=== PATIENT | male | born 1955 | race Caucasian/White ===

== ENCOUNTER 2016-08-06 13:51 | Emergency (ER) | payer BC ==
[~2016-08-06] VITALS: Ht 172.7 cm; Wt 80.8 kg
[~2016-08-06 13:51] MED LIST: ATOR10TA65 PO; CARI250T10 PO; CHOL50009 PO; FINA5TAB4 PO; FLUT16SP24 NASAL; GABA300C PO; HYD25 PO; HYDR4TAB18 PO; KENC1 TOP; METO50TA16 PO; MORP15TA92 PO; OMEP20CA16 PO; ONDA4TAB95 SUBLINGUAL; PANT40TA3 PO; TAMS-14 PO; TEMA30CA6 PO
[2016-08-06 14:04] VITALS: Ht 172.7 cm; Wt 80.8 kg
[2016-08-06] MEDS ORDERED: HYDROmorphONE 1 MG/ML SYG IV STA ×2 (15:28→17:10)
[2016-08-06] MEDS ORDERED: SOD CHLORIDE 0.9% 1,000 ML IV STA (15:28)
[2016-08-06] MEDS ORDERED: ONDANSETRON 4 MG INJ IV STA (15:28)
[2016-08-06 16:07] LABS: ADD SCAN DIFF NO
[2016-08-06 16:10] LABS: BASOPHIL # 0.1 10^3/ul (0.0-0.1); BASOPHILS % 0.6 % (0.0-2.0); EOSINOPHILS # 0.1 10^3/ul (0.0-0.5); EOSINOPHILS % 0.7 % (0.0-7.0); HEMATOCRIT 41.3 % (42.0-52.0); HEMOGLOBIN 14.4 g/dl (14.0-18.0); LYMPHOCYTES # 2.9 10^3/ul (0.8-2.9); LYMPHOCYTES % 32.8 % (15.0-51.0); MEAN CORPUSCULAR HEMOGLOBIN 28.2 pg (29.0-33.0); MEAN CORPUSCULAR HGB CONC 34.9 g/dl (32.0-37.0); MEAN PLATELET VOLUME 8.7 fl (7.4-10.4); MONOCYTE # 0.6 10^3/ul (0.3-0.9); MONOCYTES % 6.7 % (0.0-11.0); NEUTROPHIL # 5.2 10^3/ul (1.6-7.5); PLATELET COUNT 354 10^3/UL (140-415); WHITE BLOOD COUNT 8.8 10^3/ul (4.8-10.8)
--- NOTE | 2016-08-06 16:13 | RADRPT ---
PROCEDURE: CT Head without. CLINICAL INDICATION: Headache, pressure behind the right eye. TECHNIQUE: The study was performed utilizing a multi-slice, multidetector CT scanner. Direct spira l 1 mm axial sections were obtained through the head without the use of intravenous contrast materia l. 1 or more of the following dose reduction techniques were utilized: Automated exposure control, adjustment of the mA and/or kV according to patient's size, iterative reconstruction technique. Co tiki and sagittal reformations were obtained. The images were reviewed on a PACS workstation. RADIATION DOSE: CTDIvol: 50.9 mGyDLP: 715.6 mGy-cm COMPARISON: 04/02/2014 FINDINGS: There is no intracranial hemorrhage, extra-axial fluid collection, mass lesion, midline shift or hyd rocephalus. There is mild prominence of the cerebral sulci, lateral and third ventricles. There is mild to moderate patchy periventricular and subcortical white matter hypodensity. There is mild ar teriosclerotic calcification of the parasellar internal carotid arteries. The sunshine-white matter dif ferentiation is preserved. The basal cisterns are patent. The midline structures are intact. The orbits, calvarium and extracranial soft tissues are normal in appearance. The visualized paranasal s inuses, mastoid air cells and middle ear cavities are normally aerated. IMPRESSION: 1. No acute intracranial abnormality. No intracranial hemorrhage, extra-axial fluid collection, ma ss lesion or hydrocephalous. 2. Mild peripheral and central cerebral volume loss. 3. Mild to moderate patchy periventricular and subcortical white matter hypodensity, likely related to chronic microangiopathic changes. RPTAT: HGAS .Juan Teran MD, MD Date Time Electronically viewed and signed by .Juan Teran MD, on 08/06/2016 16:13 .S/
[2016-08-06 16:38] LABS: POTASSIUM 3.8 mmol/L (3.5-5.1)
[2016-08-06 16:41] LABS: CREATININE 0.85 mg/dl (0.61-1.24)
[2016-08-06 16:42] LABS: CALCIUM 10.1 mg/dl (8.4-10.2)
[2016-08-06] MEDS ORDERED: KETOROLAC 15 MG INJ IV STA (17:10)
[2016-08-06] MEDS ORDERED: ONDA8TAB14 PO (17:30)
[2016-08-06] MEDS ORDERED: HYDR-902 PO (17:30)
--- NOTE | 2016-08-06 17:35 | ERD ---
ER Documentation Chief Complaint Date/Time DATE: 08/06/16 TIME: 17:31 Chief Complaint headache/ neck pain x 4 days (sees floaters) HPI This 61-year-old male complete to the headache and neck pain for last 4 days. He has a history of chronic neck and back pain and multiple orthopedic surgeries. He is under pain management with Dr. REDDING. Denies a history of trauma. He feels weak and dehydrated due to his inability to take by mouth's through severe headache and nausea. He takes Dilaudid and morphine at home. Denies fevers, vomiting, diarrhea, abdominal pain, weakness, bowel or bladder incontinence. ROS All systems reviewed and are negative except as per history of present illness. Medications Home Meds Active Scripts Ondansetron (Ondansetron Odt) 8 Mg Tab.rapdis, 8 MG PO Q6H Y for NAUSEA AND/OR VOMITING, #8 TAB Prov:DENYS VAZQUEZ MD 08/06/16 Hydrocodone/Acetaminophen ([place] 10-325 Tablet) 1 Each Tablet, 1 TAB PO Q6H Y for PAIN, #12 TAB Prov:DENYS VAZQUEZ MD 08/06/16 Reported Medications Hydrochlorothiazide* (Hydrochlorothiazide*) 25 Mg Tab, 25 MG PO DAILY, #30 TAB 02/18/16 Pantoprazole* (Protonix*) 40 Mg Tablet.dr, 40 MG PO DAILY, TAB 02/18/16 Ondansetron Hcl* (Ondansetron Hcl*) 4 Mg Tablet, 4 MG SUBLINGUAL Q8 Y for NAUSEA , TAB 02/18/16 Triamcinolone Acetonide (Triamcinolone Acetonide) 0.1% - 15 Gm Cream.gm., 1 APPLIC TOP BID for rash, started on 02/15 for 14 Days, #1 TUB 02/18/16 Carisoprodol* (Carisoprodol*) 250 Mg Tablet, 125 MG PO Q8H Y for MUSCLE SPASMS, TAB 12/25/14 Omeprazole* (Omeprazole*) 20 Mg Capsule.dr, 20 MG PO DAILY, CAP 12/25/14 Metoprolol Succinate* (Toprol XL*) 50 Mg Tab.er.24h, 50 MG PO DAILY, TAB 12/25/14 Atorvastatin (Atorvastatin) 10 Mg Tablet, 20 MG PO, TAB 12/25/14 Cholecalciferol* (Vitamin D*) 5,000 Unit Tablet, 1000 UNIT PO DAILY, TAB 12/25/14 Morphine Sulfate* (Ms Contin*) 15 Mg Tablet.sa, 15 MG PO Q8 Y for PAIN, TAB.SA 05/12/14 Hydromorphone Hcl* (Dilaudid*) 4 Mg Tablet, 4 MG PO Q6H Y for PAIN, TAB 05/12/14 Fluticasone Propionate* (Flonase* Nasal) 50 Mcg/[place] - 16 Gm [place].susp, 1 SPRAY NASAL DAILY, SPRAY (TO EACH NOSTRIL) 04/26/14 Gabapentin* (Neurontin*) 300 Mg Capsule, 300 MG PO TID, CAP 04/26/14 Temazepam* (Restoril*) 30 Mg Capsule, 30 MG PO HS Y for INSOMNIA, CAP 04/26/14 Tamsulosin Hcl* (Flomax*) 0.4 Mg Cap.er.24h, 0.4 MG PO DAILY, CAP 04/02/14 Finasteride* (Finasteride*) 5 Mg Tablet, 5 MG PO HS, TAB 04/02/14 Allergies Allergies: Coded Allergies: azithromycin (Verified Allergy, Unknown, 02/18/16) PMhx/Soc History of Surgery: Yes (bone fusion, right rotator cuff, appendectomy, hernia , right knee replaceme) Anesthesia Reaction: No Hx Neurological Disorder: No Hx Respiratory Disorders: No Hx Cardiac Disorders: Yes (htn) Hx Psychiatric Problems: No Hx Miscellaneous Medical Probl: No Hx Alcohol Use: Yes Hx Substance Use: No Hx Tobacco Use: No Physical Exam Vitals Vital Signs Date Time Temp Pulse Resp B/P Pulse Ox O2 Delivery O2 Flow Rate FiO2 08/06/16 14:04 97.7 100 18 117/80 97 Physical Exam Const: [] Head: Atraumatic Eyes: Normal Conjunctiva ENT: Normal External Ears, Nose and Mouth. Neck: Full range of motion..~ No meningismus. Resp: Clear to auscultation bilaterally Cardio: Regular rate and rhythm, no murmurs Abd: Soft, non tender, non distended. Normal bowel sounds Skin: No petechiae or rashes Back: No midline or flank tenderness Ext: No cyanosis, or edema Neur: Awake and alert Psych: Normal Mood and Affect Result Diagram: 08/06/16 1535 08/06/16 1535 Results 24 hrs Laboratory Tests Test 08/06/16 15:35 Anion Gap 19 Basophils # 0.110^3/ul Basophils % 0.6% Blood Urea Nitrogen 12mg/dl Calcium Level 10.1mg/dl Carbon Dioxide Level 34mmol/L Chloride Level 91mmol/L Creatinine 0.85mg/dl Eosinophils # 0.110^3/ul Eosinophils % 0.7% Glucose Level 111mg/dl Hematocrit 41.3% Hemoglobin 14.4g/dl Lymphocytes # 2.910^3/ul Lymphocytes % 32.8% Mean Corpuscular Hemoglobin 28.2pg Mean Corpuscular Hemoglobin Concent 34.9g/dl Mean Corpuscular Volume 81.0fl Mean Platelet Volume 8.7fl Monocytes # 0.610^3/ul Monocytes % 6.7% Neutrophils # 5.210^3/ul Neutrophils % 59.0% Nucleated Red Blood Cells # 0.010^3/ul Nucleated Red Blood Cells % 0.0/100WBC Platelet Count 36208^3/UL Potassium Level 3.8mmol/L Red Blood Count 5.1010^6/ul Red Cell Distribution Width 13.0% Sodium Level 140mmol/L White Blood Count 8.810^3/ul Current Medications Medications (Trade) Dose Ordered Sig/José Manuel Route PRN Reason Start Time Stop Time Status Last Admin Dose Admin Sodium Chloride (NS) 1,000 ml @ 1,000 mls/hr Q1H STAT IV 08/06/16 15:28 08/06/16 16:27 DC 08/06/16 15:50 Hydromorphone HCl (Dilaudid) 1 mg ONCE STAT IV 08/06/16 15:28 08/06/16 15:30 DC 08/06/16 15:50 Ondansetron HCl (Zofran Inj) 4 mg ONCE STAT IV 08/06/16 15:28 08/06/16 15:30 DC 08/06/16 15:50 Ketorolac Tromethamine (Toradol) 15 mg ONCE STAT IV 08/06/16 17:10 08/06/16 17:12 DC 08/06/16 17:27 Hydromorphone HCl (Dilaudid) 1 mg ONCE STAT IV 08/06/16 17:10 08/06/16 17:12 DC 08/06/16 17:27 Procedures/MDM Given the uncertain cause of her acute pain and headache, no previous history of regular ED visits,AN IV was obtained. Patient was given 1 L normal saline IV , Dilaudid 1 mg IV for acute pain. CBC shows no acute abnormalities. CMP shows elevated bicarbonate decreased chloride, otherwise no acute findings. CT brain was performed which showed no acute findings. Patient was given additional Dilaudid 1 mg IV for prolonged the course. Patient felt better after observation and treatment. Patient has headache of uncertain etiology this or if of acute on chronic headaches and neck pain. Patient shows no evidence of neurologic deficit, sensory symptoms to suggest stroke, hemorrhage, meningitis, additional emergent conditions. Patient will be given a short course of [place] request for pain management in 2 days. Patient was advised drink clear fluids, push: Lower can taken follow-up with primary doctor or treating physician as necessary. He should return for fevers, vomiting, weakness, new or worsening symptoms.The patient was stable with no new complaints during the ER course. Clinically, there is no current evidence to suggest meningitis, sepsis, acute abdomen, pneumonia, acute coronary syndrome, pulmonary embolism, or any other emergent condition appearing to require further evaluation or hospitalization. The patient should certainly return for any new or worsening symptoms per the aftercare instructions. They should otherwise follow-up with her primary care doctor for reevaluation this week. Departure Diagnosis: Primary Impression: Headache Headache type: unspecified Headache chronicity pattern: acute headache Intractability: not intractable Qualified Code: R51 - Acute nonintractable headache, unspecified headache type Condition: Stable Patient Instructions: Self-Care for Headaches, Back And Neck Pain, General Additional Instructions: [place] doctor or pain management as scheduled. Recheck for fevers, vomiting, new or worsening symptoms. DENYS VAZQUEZ MD Aug 06, 2016 17:35
[2016-08-06 17:58] VITALS: BP 115/78; PULSE 79; RESP 16; TEMP 98.3
== END 2016-08-06 18:00 | disposition home or self-care (01) ==
LOC: FTE 13:51
DX: R51 Headache (principal); I10 Essential (primary) hypertension; R11.0 Nausea; Z96.651 Presence of right artificial knee joint
CPT/HCPCS: 36415; 70450; 80048; 85025; 96374; 96375; 96376; J1170; J1885; J2405; J7030; Z7502

== ENCOUNTER 2016-08-18 14:43 | Emergency (ER) | payer BC ==
[~2016-08-18] VITALS: Wt 79.0 kg
[~2016-08-18 14:43] MED LIST changes: +HYDR-902 PO; +ONDA8TAB14 PO
[2016-08-18] MEDS ORDERED: SOD CHLORIDE 0.9% 1,000 ML IV STA (16:10)
[2016-08-18] MEDS ORDERED: ONDANSETRON 4 MG INJ IV STA (16:10)
[2016-08-18] MEDS ORDERED: HYDROmorphONE 1 MG/ML SYG IV STA (16:18)
[2016-08-18 16:36] LABS: ADD SCAN DIFF NO
[2016-08-18 16:48] LABS: ALBUMIN 4.4 g/dl (3.3-4.9); BASOPHILS % 0.3 % (0.0-2.0); EOSINOPHILS % 0.1 % (0.0-7.0); HEMATOCRIT 40.3 % (42.0-52.0); HEMOGLOBIN 13.4 g/dl (14.0-18.0); LYMPHOCYTES # 1.3 10^3/ul (0.8-2.9); LYMPHOCYTES % 15.5 % (15.0-51.0); MEAN CORPUSCULAR HGB CONC 33.3 g/dl (32.0-37.0); MEAN CORPUSCULAR VOLUME 84.1 fl (82.0-101.0); MEAN PLATELET VOLUME 9.1 fl (7.4-10.4); MONOCYTE # 0.4 10^3/ul (0.3-0.9); NEUTROPHIL # 6.9 10^3/ul (1.6-7.5); NEUTROPHILS % 79.8 % (39.0-77.0); PLATELET COUNT 272 10^3/UL (140-415); RED BLOOD COUNT 4.79 10^6/ul (4.70-6.10); RED CELL DISTRIBUTION WIDTH 12.9 % (11.5-14.5); WHITE BLOOD COUNT 8.7 10^3/ul (4.8-10.8)
[2016-08-18 16:49] LABS: POTASSIUM 4.1 mmol/L (3.5-5.1)
[2016-08-18 16:51] LABS: ALBUMIN/GLOBULIN RATIO 1.37; BILIRUBIN,INDIRECT 0.6 mg/dl (0-1.1); BILIRUBIN,TOTAL 0.6 mg/dl (0.2-1.3); CREATININE 0.75 mg/dl (0.61-1.24); TOTAL PROTEIN 7.6 g/dl (6.1-8.1)
[2016-08-18 16:52] LABS: CALCIUM 10.1 mg/dl (8.4-10.2)
[2016-08-18] MEDS ORDERED: FAMO-18 PO (17:30)
[2016-08-18] MEDS ORDERED: LIDOCAINE/MYLANTA 40 ML BTL PO ONE (17:30)
[2016-08-18] MEDS ORDERED: FAMOTIDINE 20 MG INJ IV ONE (17:30)
--- NOTE | 2016-08-18 18:00 | ERD ---
ER Documentation Chief Complaint Date/Time DATE: 08/18/16 TIME: 17:57 Chief Complaint CHRONIC BACK PAIN HPI 61-year-old male with a past medical history of chronic neck, back, knee pain that started intermittently 5 years ago presents the ED complaining of the same chronic pain as well as weakness. States that he has not eaten in the last 3 days. States that he also has left upper quadrant abdominal pain. Describes the pain as achy and rates it a 10 out of 10. States that he does have a pain specialist, Dr. Jason and states that the medications that he is prescribing is not helping with his symptoms as it makes him sleepy. Denies any new injuries. States that his pain is the same chronic pain. Denies any chest pain, shortness of breath, nausea, vomiting, diarrhea, dyspnea on exertion, dizziness. ROS All systems reviewed and are negative except as per history of present illness. Medications Home Meds Active Scripts Famotidine* (Pepcid*) 20 Mg Tablet, 20 MG PO BID, #30 TAB Prov:NOE TORRES PA-C 08/18/16 Ondansetron (Ondansetron Odt) 8 Mg Tab.rapdis, 8 MG PO Q6H Y for NAUSEA AND/OR VOMITING, #8 TAB Prov:DENYS LUCIO MD 08/06/16 Hydrocodone/Acetaminophen ([place] 10-325 Tablet) 1 Each Tablet, 1 TAB PO Q6H Y for PAIN, #12 TAB Prov:DENYS LUCIO MD 08/06/16 Reported Medications Hydrochlorothiazide* (Hydrochlorothiazide*) 25 Mg Tab, 25 MG PO DAILY, #30 TAB 02/18/16 Pantoprazole* (Protonix*) 40 Mg Tablet.dr, 40 MG PO DAILY, TAB 02/18/16 Ondansetron Hcl* (Ondansetron Hcl*) 4 Mg Tablet, 4 MG SUBLINGUAL Q8 Y for NAUSEA , TAB 02/18/16 Triamcinolone Acetonide (Triamcinolone Acetonide) 0.1% - 15 Gm Cream.gm., 1 APPLIC TOP BID for rash, started on 02/15 for 14 Days, #1 TUB 02/18/16 Carisoprodol* (Carisoprodol*) 250 Mg Tablet, 125 MG PO Q8H Y for MUSCLE SPASMS, TAB 12/25/14 Omeprazole* (Omeprazole*) 20 Mg Capsule.dr, 20 MG PO DAILY, CAP 12/25/14 Metoprolol Succinate* (Toprol XL*) 50 Mg Tab.er.24h, 50 MG PO DAILY, TAB 12/25/14 Atorvastatin (Atorvastatin) 10 Mg Tablet, 20 MG PO, TAB 12/25/14 Cholecalciferol* (Vitamin D*) 5,000 Unit Tablet, 1000 UNIT PO DAILY, TAB 12/25/14 Morphine Sulfate* (Ms Contin*) 15 Mg Tablet.sa, 15 MG PO Q8 Y for PAIN, TAB.SA 05/12/14 Hydromorphone Hcl* (Dilaudid*) 4 Mg Tablet, 4 MG PO Q6H Y for PAIN, TAB 05/12/14 Fluticasone Propionate* (Flonase* Nasal) 50 Mcg/[place] - 16 Gm [place].susp, 1 SPRAY NASAL DAILY, SPRAY (TO EACH NOSTRIL) 04/26/14 Gabapentin* (Neurontin*) 300 Mg Capsule, 300 MG PO TID, CAP 04/26/14 Temazepam* (Restoril*) 30 Mg Capsule, 30 MG PO HS Y for INSOMNIA, CAP 04/26/14 Tamsulosin Hcl* (Flomax*) 0.4 Mg Cap.er.24h, 0.4 MG PO DAILY, CAP 04/02/14 Finasteride* (Finasteride*) 5 Mg Tablet, 5 MG PO HS, TAB 04/02/14 Allergies Allergies: Coded Allergies: azithromycin (Verified Allergy, Unknown, 02/18/16) PMhx/Soc History of Surgery: Yes (bone fusion, right rotator cuff, appendectomy, hernia , right knee replaceme) Anesthesia Reaction: No Hx Neurological Disorder: No Hx Respiratory Disorders: No Hx Cardiac Disorders: Yes (htn) Hx Psychiatric Problems: No Hx Miscellaneous Medical Probl: No Hx Alcohol Use: Yes Hx Substance Use: No Hx Tobacco Use: No Smoking Status: Never smoker Physical Exam Vitals Vital Signs Date Time Temp Pulse Resp B/P Pulse Ox O2 Delivery O2 Flow Rate FiO2 08/18/16 14:46 98.0 98 18 134/93 99 Physical Exam Const: [id number], well-nourished. In no acute distress. Head: Atraumatic, normocephalic Eyes: Normal Conjunctiva without injection. No purulent discharge. ENT: Normal external ear, nose. Moist oropharynx without tonsillar exudates. Non -erythematous pharynx. Uvula midline. No drooling. No trismus. Neck: No cervical midline tenderness. Full range of motion. No meningismus. No cervical lymphadenopathy. No JVD. Resp: Clear to auscultation bilaterally. No wheezing, rhonchi, rales, or crackles. No accessory muscle use. No retractions. Cardio: Regular rate and rhythm. No murmurs, rubs or gallops. Abd: Soft, left upper quadrant tenderness, non distended. Normal bowel sounds. No palpable masses. No rebound tenderness. No guarding. Negative McBurney's point. Negative psoas sign. Negative obturator sign. Skin: No petechiae or rashes Back: No midline tenderness. No CVA tenderness. Ext: No cyanosis, or edema. Neur: Awake and alert. Normal gait. Normal coordination. Psych: Normal Mood and Affect Result Diagram: 08/18/16 1627 08/18/16 1627 Results 24 hrs Laboratory Tests Test 08/18/16 16:27 Alanine Aminotransferase (ALT/SGPT) 35IU/L Albumin 4.4g/dl Albumin/Globulin Ratio 1.37 Alkaline Phosphatase 92IU/L Anion Gap 19 Aspartate Amino Transf (AST/SGOT) 21IU/L Basophils # 0.010^3/ul Basophils % 0.3% Blood Urea Nitrogen 9mg/dl Calcium Level 10.1mg/dl Carbon Dioxide Level 28mmol/L Chloride Level 101mmol/L Creatinine 0.75mg/dl Direct Bilirubin 0.00mg/dl Eosinophils # 0.010^3/ul Eosinophils % 0.1% Globulin 3.20g/dl Glucose Level 114mg/dl Hematocrit 40.3% Hemoglobin 13.4g/dl Indirect Bilirubin 0.6mg/dl Lipase 14U/L Lymphocytes # 1.310^3/ul Lymphocytes % 15.5% Mean Corpuscular Hemoglobin 28.0pg Mean Corpuscular Hemoglobin Concent 33.3g/dl Mean Corpuscular Volume 84.1fl Mean Platelet Volume 9.1fl Monocytes # 0.410^3/ul Monocytes % 4.0% Neutrophils # 6.910^3/ul Neutrophils % 79.8% Nucleated Red Blood Cells # 0.010^3/ul Nucleated Red Blood Cells % 0.0/100WBC Platelet Count 53759^3/UL Potassium Level 4.1mmol/L Red Blood Count 4.7910^6/ul Red Cell Distribution Width 12.9% Sodium Level 144mmol/L Total Bilirubin 0.6mg/dl Total Protein 7.6g/dl White Blood Count 8.710^3/ul Current Medications Medications (Trade) Dose Ordered Sig/José Manuel Route PRN Reason Start Time Stop Time Status Last Admin Dose Admin Sodium Chloride (NS) 1,000 ml @ 1,000 mls/hr Q1H STAT IV 08/18/16 16:10 08/18/16 17:09 DC 08/18/16 16:33 Ondansetron HCl (Zofran Inj) 4 mg ONCE STAT IV 08/18/16 16:10 08/18/16 16:12 DC 08/18/16 16:33 Hydromorphone HCl (Dilaudid) 1 mg ONCE STAT IV 08/18/16 16:18 08/18/16 16:19 DC 08/18/16 16:33 Famotidine (Pepcid Iv) 20 mg ONCE ONCE IV 08/18/16 17:30 08/18/16 17:31 DC 08/18/16 17:33 Miscellaneous Medication (Gi Cocktail (2)) 40 ml ONCE ONCE PO 08/18/16 17:30 08/18/16 17:31 DC 08/18/16 17:33 Procedures/MDM This is a 61-year-old male with a past medical history of chronic back, neck, right knee pain present for the ED complaining of chronic pain as well as a new onset of left upper quadrant abdominal pain. Patient is afebrile and nontoxic- appearing. Patient was further worked up with CBC, CMP, lipase. She was treated here in the ED with 1 mg IV Dilaudid, 1 L of normal saline, GI cocktail , famotidine 20 mg IV with improvement of his symptoms. CBC: No leukocytosis. No e/o of systemic infection. No e/o anemia. CMP: No e/o severe acidosis, alkalosis, renal failure, diabetic ketoacidosis, liver disease Lipase within normal limits. Patient's back pain is likely chronic. I discussed with the patient that he should not return for pain management as he has a chronic pain specialist physician. Patient receives medication such as [place], Risperdal, morphine for his pain. I strictly instructed patient that I will not refill a narcotic pain prescription for him. This case was discussed with my supervising physician, Dr. Lucio who agreed with the management and discharge plan. Patient symptoms could likely be due to gastritis. I instructed patient to follow-up with a gastroc and her neurologist to further evaluate with endoscopy. A differential diagnosis considered includes but is not limited to gastritis, GERD, peptic ulcer disease, cholecystitis, choledocholithiasis, cholangitis, pancreatitis, appendicitis, bowel obstruction, ileus, volvulus, nephrolithiasis, pyelonephritis, hepatitis, perforated viscus, diverticulitis, abdominal hernia, acute abdomen, mesenteric ischemia or other emergent conditions. Patient is ambulating here in the ED without difficulty. Denies saddle anesthesia, numbness or tingling, urine or bowel incontinence, weakness. Low suspicion for cauda equina syndrome, cord compression, nephrolithiasis, aortic aneurysm, aortic dissection, epidural abscess, spinal hematoma, malignancy, pyelonephritis , degenerative disc disease, spinal stenosis, meningitis, TIA, stroke, central cord syndrome, or other emergent conditions. Discharge medications: Pepcid Follow up with primary care physician in 1-2 days for referral to time checker. Instructed patient to return to the ED sooner for any worsening symptoms. Patient's questions were answered. Patient understood and agreed with discharge plan. Patient discharged stable. Departure Diagnosis: Primary Impression: Abdominal pain, left upper quadrant Additional Impression: Chronic back pain Back pain location: back pain in unspecified location Back pain laterality: right Qualified Code: M54.9 - Chronic right-sided back pain, unspecified back location Condition: Stable Patient Instructions: Back Pain (Acute Or Chronic), Chronic Pain, Gastritis Vs. Ulcer [facility] YOU HAVE RECEIVED A MEDICAL SCREENING EXAM AND THE RESULTS INDICATE THAT YOU DO NOT HAVE A CONDITION THAT REQUIRES URGENT TREATMENT IN THE EMERGENCY DEPARTMENT. FURTHER EVALUATION AND TREATMENT OF YOUR CONDITION CAN WAIT UNTIL YOU ARE SEEN IN YOUR DOCTORS OFFICE WITHIN THE NEXT 1-2 DAYS. IT IS YOUR RESPONSIBILITY TO MAKE AN APPOINTMENT FOR FOLOW-UP CARE. IF YOU HAVE A PRIMARY DOCTOR --you should call your primary doctor and schedule an appointment IF YOU DO NOT HAVE A PRIMARY DOCTOR YOU CAN CALL OUR PHYSICIAN REFERRAL HOTLINE AT IF YOU CAN NOT AFFORD TO SEE A PHYSICIAN YOU CAN CHOSE FROM THE FOLLOWING [facility] [address] [place] [facility] [address] [place] [facility] [address] [facility] [address] [facility] [address] [facility]. [facility] [address] [facility]. [facility] YOU HAVE RECEIVED A MEDICAL SCREENING EXAM AND THE RESULTS INDICATE THAT YOU DO NOT HAVE A CONDITION THAT REQUIRES URGENT TREATMENT IN THE EMERGENCY DEPARTMENT. FURTHER EVALUATION AND TREATMENT OF YOUR CONDITION CAN WAIT UNTIL YOU ARE SEEN IN YOUR DOCTORS OFFICE WITHIN THE NEXT 1-2 DAYS. IT IS YOUR RESPONSIBILITY TO MAKE AN APPOINTMENT FOR FOLOW-UP CARE. IF YOU HAVE A PRIMARY DOCTOR --you should call your primary doctor and schedule and appointment IF YOU DO NOT HAVE A PRIMARY DOCTOR YOU CAN CALL OUR PHYSICIAN REFERRAL HOTLINE AT . IF YOU CAN NOT AFFORD TO SEE A PHYSICIAN YOU CAN CHOSE FROM THE FOLLOWING [facility] INSTITUTIONS: [facility] [address] [place] [address] [facility] [address] [place] [address] [facility] [address] [place] [address] [facility] URGENT CARE/SPECIALTIES Additional Instructions: FOLLOW UP WITH YOUR PRIMARY CARE PHYSICIAN TOMORROW for a referral to chronic pain specialist and time checker. Return to this facility if you are not improving as expected. NOE TORRES PA-C Aug 18, 2016 18:00
[2016-08-18 18:03] VITALS: BP 135/91; PULSE 59; RESP 18
== END 2016-08-18 18:00 | disposition home or self-care (01) ==
LOC: FTE 14:43
DX: R10.12 Left upper quadrant pain (principal); M54.9 Dorsalgia, unspecified; I10 Essential (primary) hypertension; Z96.651 Presence of right artificial knee joint
CPT/HCPCS: 36415; 80053; 83690; 85025; 96374; 96375; J1170; J2405; J7030; Z7502; Z7610